=== PATIENT | male | born 1995 | race American Indian/Alaskan Native ===

== ENCOUNTER 2018-03-13 03:06 | Emergency (ER) | payer BC ==
[2018-03-13] MEDS ORDERED: Simethicone 80 mg Chewtab PO STA (03:35)
--- NOTE | 2018-03-13 03:37 | ED PDOC ---
Arrival/HPI - General Chief Complaint: Abdominal Pain Time Seen by Provider: 03/13/18 03:17 Historian: Patient - History of Present Illness Narrative History of Present Illness (Text): 03/13/18 03:29 22 year old male, with no significant past medical history, presents to the emergency department with abdominal pain, since yesterday. Patient states pain began around 19:30 yesterday with constipation. Patient then took laxatives and had a bowel movement at 23:30. Patient states pain has still been intermittent, and woke him from his sleep. Patient informs removing dairy from his diet 3 months ago, and introducing it back about 1 day prior. Patient localizes pain to the periumbilical region. Patient denies any fever, chills, dysuria, rashes, penile discharge, headache, dizziness, chest pain, shortness of breath or any other complaints. 03/15/18 00:43 Time/Duration: Prior to Arrival Symptom Onset: Gradual Symptom Course: Unchanged Activities at Onset: Light Context: Home Past Medical History - Provider Review Nursing Documentation Reviewed: Yes - Infectious Disease Hx of Infectious Diseases: None - Cardiac Hx Cardiac Disorders: No - Pulmonary Hx Respiratory Disorders: Yes Hx Pneumonia: Yes - Neurological Hx Neurological Disorder: No - HEENT Hx HEENT Disorder: No - Renal Hx Renal Disorder: No - Endocrine/Metabolic Hx Endocrine Disorders: No - Hematological/Oncological Hx Blood Disorders: No - Integumentary Hx Dermatological Disorder: No - Musculoskeletal/Rheumatological Hx Musculoskeletal Disorders: No - Gastrointestinal Hx Gastrointestinal Disorders: No - Genitourinary/Gynecological Hx Genitourinary Disorders: No - Psychiatric Hx Psychophysiologic Disorder: No Hx Substance Use: No - Surgical History Other/Comment: torn rt meniscus - Anesthesia Hx Anesthesia: Yes Hx Anesthesia Reactions: No Family/Social History - Physician Review Nursing Documentation Reviewed: Yes Family/Social History: No Known Family HX Smoking Status: Never Smoked Hx Alcohol Use: Yes Frequency of alcohol use: Socially Hx Substance Use: No Allergies/Home Meds Allergies/Adverse Reactions: Allergies ketorolac [From Toradol] Allergy (Verified 03/13/18 03:14) NAUSEA Review of Systems - Physician Review All systems were reviewed & negative as marked: Yes - Review of Systems Constitutional: absent: Fatigue, Fevers, Night Sweats Eyes: absent: Vision Changes ENT: absent: Hearing Changes Respiratory: absent: SOB, Cough Cardiovascular: absent: Chest Pain, Palpitations Gastrointestinal: Abdominal Pain. absent: Constipation, Diarrhea, Hematochezia, Hematemesis Genitourinary Male: absent: Dysuria, Other (no penile discharge) Skin: absent: Rash, Skin Lesions Neurological: absent: Headache, Dizziness Physical Exam Vital Signs Reviewed: Yes Vital Signs Temp Pulse Resp BP Pulse Ox 03/13/18 03:15 98.1 F 100 H 16 151/90 H 96 Temperature: Afebrile Blood Pressure: Hypertensive Pulse: Tachycardic Respiratory Rate: Normal Appearance: Positive for: Well-Appearing, Non-Toxic, Comfortable Pain Distress: None Mental Status: Positive for: Alert and Oriented X 3 - Systems Exam Head: Present: Atraumatic, Normocephalic Pupils: Present: PERRL Extroacular Muscles: Present: EOMI Conjunctiva: Present: Normal Ears: Present: Normal Mouth: Present: Moist Mucous Membranes Neck: Present: Normal Range of Motion. No: Meningeal Signs Respiratory/Chest: Present: Clear to Auscultation, Good Air Exchange. No: Respiratory Distress, Accessory Muscle Use Cardiovascular: Present: Regular Rate and Rhythm, Normal S1, S2. No: Murmurs Abdomen: Present: Tenderness (periumbilical abdominal pain). No: Distention, Peritoneal Signs Back: Present: Normal Inspection Upper Extremity: Present: Normal Inspection. No: Cyanosis, Edema Lower Extremity: Present: Normal Inspection. No: Edema Neurological: Present: GCS=15, CN II-XII Intact, Speech Normal Skin: Present: Warm, Dry, Normal Color. No: Rashes Psychiatric: Present: Alert, Oriented x 3, Normal Insight, Normal Concentration Medical Decision Making ED Course and Treatment: 03/13/18 03:42 Impression: 22 year old male presents with periumbilical abdominal pain. Periumbilical pain, without radiation, first time occurence. Otherwise well appearing on exam without peritoneal signs. Likely enteritis but given periumbilical pain will seek imaging. Plan: -- CT ABD & Pelvis -- EKG -- CMP, Lipase -- CBC -- Pepcid -- Zofran -- Mylicon -- Urinalysis -- Reassess and disposition Prior Visits: No previous visits to this ER. Progress Notes: 03/13/18 06:31 Labs unremarkable pt in NAD w/ VSS pain improved abd non-ttp 03/13/18 06:53 No SBO or LBO on CT per Ct from Dr. Browne Enteritis No ileus per Dr. Howard reading CT (director of rads for [facility]) Pt notes normal BM, last BM was this morning. mildly elevated WBC, pt in NAD w/ out abd pain, will d/c home with abx - Scribe Statement The provider has reviewed the documentation as recorded by the Scribe Urbano Espinosa Provider Scribe Attestation: All medical record entries made by the Scribe were at my direction and personally dictated by me. I have reviewed the chart and agree that the record accurately reflects my personal performance of the history, physical exam, medical decision making, and the department course for this patient. I have also personally directed, reviewed, and agree with the discharge instructions and disposition. Disposition/Present on Arrival - Present on Arrival Any Indicators Present on Arrival: No History of DVT/PE: No History of Uncontrolled Diabetes: No Urinary Catheter: No History of Decub. Ulcer: No History Surgical Site Infection Following: None - Disposition Have Diagnosis and Disposition been Completed?: Yes Diagnosis: Enteritis, Gastroenteritis Disposition: HOME/ ROUTINE Disposition Time: 06:55 Condition: GOOD Discharge Instructions (ExitCare): Gastroenteritis (ED) Additional Instructions: KEDAR AHN, thank you for letting us take care of you today. Your provider was Asa Campa and you were treated for ABDOMINAL PAIN. The emergency medical care you received today was directed at your acute symptoms. If you were prescribed any medication, please fill it and take as directed. It may take several days for your symptoms to resolve. Return to the Emergency Department if your symptoms worsen, do not improve, or if you have any other problems. Please contact your doctor or call one of the physicians/clinics you have been referred to that are listed on the Patient Visit Information form that is included in your discharge packet. Bring any paperwork you were given at discharge with you along with any medications you are taking to your follow up visit. Our treatment cannot replace ongoing medical care by a primary care provider outside of the emergency department. Thank you for allowing the [facility] [employer] team to be part of your care today. If you had an X-Ray or CT scan: A Radiologist will review the ED reading if any change in treatment is needed we will contact you. If you had a blood, urine, or wound culture: It will take several days for the results, if any change in treatment is needed we will contact you. If you had an STI test: It will take 48 hours for the results. Please call after 1 week if you have not heard back. Prescriptions: RX: rifAXIMin [Xifaxan] 200 mg PO Q8 3 Days #9 tab Referrals: Gama Johnson DO [Staff Provider] - Follow up with primary Sahara Ramirez MD [Medical Doctor] - Follow up with primary [facility] [Outside] - Follow up with primary Forms: [employer] (Polish)
[2018-03-13] MEDS ORDERED: Sodium Chloride 0.9% 1,000 ML IV STA (03:38)
[2018-03-13 04:23] LABS: ALB/GLOB RATIO 1.3 (1.1-1.8); ALBUMIN 4.7 g/dL (3.0-4.8); ALT/SGPT 64 U/L (7-56); AST/SGOT 41 U/L (17-59); BLOOD UREA NITROGEN 18 mg/dL (7-21); CALCIUM 9.9 mg/dL (8.4-10.5); GFR NON-AFRICAN AMERICAN > 60; LIPASE 42 U/L (23-300)
[2018-03-13 04:26] LABS: BASO # 0.02 K/mm3 (0.0-2.0); BASO % 0.2 % (0.0-3.0); EOS # 0.1 (0.0-0.7); EOS % 0.4 % (1.5-5.0); GRAN # 10.21 (1.4-6.5); GRAN % 87.4 % (50.0-68.0); HEMOGLOBIN 14.7 g/dL (14.0-18.0); LYMPH # 0.6 (1.2-3.4); MEAN CELL VOLUME 80.1 fl (80.0-105.0); MEAN CORPUSCULAR HEMOGLOBIN 26.6 pg (25.0-35.0); MEAN CORPUSCULAR HGB CONC 33.3 g/dl (31.0-37.0); MEAN PLATELET VOLUME 9.7 fl (7.0-11.0); MONO # 0.8 (0.1-0.6); PLATELET COUNT 241 10^3/uL (120.0-450.0); RBC 5.52 10^6/uL (3.5-6.1); WHITE BLOOD COUNT 11.7 10^3/uL (4.5-11.0)
[2018-03-13] MEDS ORDERED: Iohexol 350 MG/100 ML VIAL ONE (04:33)
[2018-03-13] MEDS ORDERED: Morphine 4 mg/ml ISec IVP STA (05:16)
[2018-03-13 05:22] LABS: BAND 1 % (0-2); NEUTROPHIL 88 % (50.0-70.0)
[2018-03-13 05:23] LABS: LYMPHOCYTE 5 % (22.0-35.0); MONOCYTE 5 % (1.0-6.0)
[2018-03-13 05:24] LABS: METAMYELOCYTE 1 %
[2018-03-13 05:25] LABS: PLATELET ESTIMATE NORMAL (NORMAL)
[2018-03-13 05:26] VITALS: RESP 18
[2018-03-13 06:04] LABS: PH,URINE 8.5 (4.7-8.0); URINE BILIRUBIN NEGATIVE (NEGATIVE); URINE BLOOD NEGATIVE (NEGATIVE); URINE GLUCOSE (UA) NEGATIVE (NEGATIVE); URINE LEUKOCYTE ESTERASE NEGATIVE Leu/uL (NEGATIVE); URINE PROTEIN NEGATIVE mg/dL (<30 mg/dL); URINE UROBILINOGEN 0.2 E.U./dL (<1 E.U./dL)
[2018-03-13 06:17] LABS: URINE APPEARANCE CLEAR (CLEAR); URINE COLOR YELLOW (YELLOW)
[2018-03-13 07:21] VITALS: BP 140/80; PULSE 90; TEMP 98; O2SAT 100
--- NOTE | 2018-03-13 13:06 | CT ---
Date of service: 03/13/2018 PROCEDURE: CT Abdomen and Pelvis with contrast HISTORY: abd pain, periumbilical COMPARISON: None. TECHNIQUE: Contrast dose: 100 mL Omnipaque 350 Radiation dose: Total exam DLP = 892.19 mGy-cm. This CT exam was performed using one or more of the following dose reduction techniques: Automated exposure control, adjustment of the mA and/or kV according to patient size, and/or use of iterative reconstruction technique. FINDINGS: LOWER THORAX: Unremarkable. LIVER: Unremarkable. No gross lesion or ductal dilatation. GALLBLADDER AND BILE DUCTS: Unremarkable. PANCREAS: Unremarkable. No gross lesion or ductal dilatation. SPLEEN: Unremarkable. ADRENALS: Unremarkable. No mass. KIDNEYS AND URETERS: Unremarkable. No hydronephrosis. No solid mass. VASCULATURE: Unremarkable. No aortic aneurysm. No aortic atherosclerotic calcification or mural plaque present. BOWEL: Unremarkable. No obstruction. No gross mural thickening. APPENDIX: Normal appendix. PERITONEUM: Unremarkable. No free fluid. No free air. LYMPH NODES: Unremarkable. No enlarged lymph nodes. BLADDER: Unremarkable. REPRODUCTIVE: Unremarkable. BONES: No acute fracture. OTHER FINDINGS: None. IMPRESSION: No acute abdominal pelvic pathology.
--- NOTE | 2018-03-13 17:55 | CARD ---
APPROVED REPORT Date of service: 03/13/2018 EKG Measurement Heart [id number] <Conclusion> Normal sinus rhythm Normal ECG
== END 2018-03-13 07:10 | disposition home or self-care (01) ==
LOC: ED 03:06
DX: K52.9 Noninfective gastroenteritis and colitis, unspecified (principal)
CPT/HCPCS: 74177; 80053; 81003; 83690; 85025; 93005; 96374; 96375; 99284; J2270; J2405; J7030; Q9967